=== PATIENT | female | born 1990 | race African-American/Black ===

== ENCOUNTER 2016-09-27 14:50 | Emergency (ER) | payer SELFPAY ==
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
== END 2016-09-27 16:10 | disposition home or self-care (01) ==
LOC: ER 14:50
DX: T24.032A Burn of unspecified degree of left lower leg, initial encounter (principal); X08.8XXA Exposure to other specified smoke, fire and flames, initial encounter
CPT/HCPCS: 99283

== ENCOUNTER 2016-11-09 11:59 | Emergency (ER) | payer BC, OTHER ==
--- NOTE | 2016-11-09 12:27 | ER Document Report ---
ED Medical Screen (RME) - General Chief Complaint: Pelvic Pain Stated Complaint: LEFT SIDE PAIN Time Seen by Provider: 11/09/16 12:04 Mode of Arrival: Ambulatory Information source: Patient TRAVEL OUTSIDE OF THE U.[place]. IN LAST 30 DAYS: No - HPI Patient complains to provider of: Right-sided pelvic pain Notes: 11/09/16 12:25 Patient is a 26-year-old female , presenting to the emergency room with right-sided pelvic pain that started earlier this morning, patient reports positive test confirmed at [facility], no ultrasound yet, denies any bleeding or abnormal discharge, no urinary symptoms, no fevers, LMP is 8, putting patient at 6 weeks 0 days - Related Data Allergies/Adverse Reactions: peanut Allergy (Verified 11/09/16 12:03) strawberry [[place]lin] Allergy (Verified 11/09/16 12:03) chocolate Allergy (Uncoded 11/09/16 12:03) Past Medical History Pulmonary Medical History: Reports: Hx Asthma - as a child Endocrine Medical History: Denies: Hx Diabetes Mellitus Type 1, Hx Diabetes Mellitus Type 2 Renal/ Medical History: Denies: Hx Peritoneal Dialysis - Immunizations Hx Diphtheria, Pertussis, Tetanus Vaccination: No Physical Exam - Vital signs Vitals: Temp Pulse Resp BP Pulse Ox 98.5 F 86 14 113/74 100 11/09/16 12:03 11/09/16 12:03 11/09/16 12:03 11/09/16 12:03 11/09/16 12:03 Course - Vital Signs Vital signs: Temp Pulse Resp BP Pulse Ox 98.5 F 86 14 113/74 100 11/09/16 12:03 11/09/16 12:03 11/09/16 12:03 11/09/16 12:03 11/09/16 12:03
[2016-11-09] MEDS: ACETAMINOPHEN 325 MG TABLET PO ONE (12:49)
[2016-11-09 12:59] LABS: APPEARANCE,URINE SLIGHTLY-CLOUDY; BILIRUBIN,URINE NEGATIVE (NEGATIVE); GLUCOSE, URINE NEGATIVE (NEGATIVE); KETONES,URINE NEGATIVE (NEGATIVE); LEUKOCYTE ESTERASE,URINE NEGATIVE (NEGATIVE); NITRITE,URINE NEGATIVE (NEGATIVE); PROTEIN,URINE NEGATIVE (NEGATIVE); URINE SPECIFIC GRAVITY 1.031; UROBILINOGEN,URINE NEGATIVE mg/dL (<2.0)
[2016-11-09 13:01] LABS: ABSOLUTE EOSINOPHILS # (AUTO) 0.2 10^3/uL (0.0-0.6); ABSOLUTE LYMPHOCYTES (AUTO) 2.3 10^3/uL (0.5-4.7); ABSOLUTE MONOCYTES (AUTO) 0.7 10^3/uL (0.1-1.4); ABSOLUTE NEUT (AUTO) 6.6 10^3/uL (1.7-8.2); BASOPHILS % (AUTO) 0.4 % (0-2); EOSINOPHILS % (AUTO) 2.2 % (0-6); HEMATOCRIT 31.1 % (36.0-47.0); HEMOGLOBIN 10.6 g/dL (12.0-15.5); HGB HCT DIFFERENCE 0.7; LYMPHOCYTES % (AUTO) 23.8 % (13-45); MEAN CORPUSCULAR HEMOGLOBIN 29.5 pg (27.0-33.4); MEAN CORPUSCULAR VOLUME 87 fl (80-97); MONOCYTES % (AUTO) 6.9 % (3-13); RED BLOOD COUNT 3.57 10^6/uL (3.72-5.28); RED CELL DISTRIBUTION WIDTH 14.5 % (11.5-14.0); SEGMENTED NEUTROPHILS % (AUTO) 66.7 % (42-78); WHITE BLOOD COUNT 9.9 10^3/uL (4.0-10.5)
[2016-11-09 13:07] LABS: ALANINE AMINOTRANSFERASE 49 U/L (9-52); ALBUMIN 3.9 g/dL (3.5-5.0); ALKALINE PHOSPHATASE 40 U/L (38-126); ANION GAP 8 (5-19); ASPARTATE AMINO TRANSFERASE 33 U/L (14-36); BILIRUBIN,DIRECT 0.2 mg/dL (0.0-0.4); BILIRUBIN,TOTAL 0.2 mg/dL (0.2-1.3); BLOOD UREA NITROGEN 12 mg/dL (7-20); CALCIUM 9.5 mg/dL (8.4-10.2); CARBON DIOXIDE 26 mmol/L (22-30); CHLORIDE 103 mmol/L (98-107); CREATININE RESULT 0.78 mg/dL (0.52-1.25); GLUCOSE 88 mg/dL (75-110); POTASSIUM 3.8 mmol/L (3.6-5.0); SODIUM 136.9 mmol/L (137-145); TOTAL PROTEIN 7.2 g/dL (6.3-8.2)
--- NOTE | 2016-11-09 14:27 | ER Document Report ---
ED GI/ - General Chief Complaint: Pelvic Pain Stated Complaint: LEFT SIDE PAIN Time Seen by Provider: 11/09/16 12:04 Mode of Arrival: Ambulatory Information source: Patient TRAVEL OUTSIDE OF THE [place]. IN LAST 30 DAYS: No - HPI Patient complains to provider of: Abdominal pain Onset: Yesterday Timing/Duration: Sudden, Intermittent Quality of pain: Cramping, Sharp Severity at maximum: Moderate Severity in ED: Mild Context: Location: RLQ, Right flank Vaginal bleeding (Compared to normal period): None Menstrual period history: OB ultrasound done: Yes Sexual history: Active Associated symptoms: denies: Chills, Diarrhea, Fever, Nausea Exacerbated by: Denies Relieved by: Denies Similar symptoms previously: No Recently seen / treated by doctor: No - Related Data Allergies/Adverse Reactions: peanut Allergy (Verified 11/09/16 12:03) strawberry [[place]] Allergy (Verified 11/09/16 12:03) chocolate Allergy (Uncoded 11/09/16 12:03) Past Medical History - General Information source: Patient - Social History Smoking Status: Never Smoker Chew tobacco use (# tins/day): No Frequency of alcohol use: None Drug Abuse: None Lives with: Spouse/Significant other Family History: Reviewed & Not Pertinent Patient has suicidal ideation: No Patient has homicidal ideation: No - Past Medical History Cardiac Medical History: Reports: None Pulmonary Medical History: Reports: Hx Asthma - as a child Neurological Medical History: Reports: None Endocrine Medical History: Reports: None. Denies: Hx Diabetes Mellitus Type 1, Hx Diabetes Mellitus Type 2 Renal/ Medical History: Reports: None. Denies: Hx Peritoneal Dialysis Malignancy Medical History: Reports: None GI Medical History: Reports: None Musculoskeltal Medical History: Reports None Psychiatric Medical History: Reports: None Surgical Hx: Negative - Immunizations Hx Diphtheria, Pertussis, Tetanus Vaccination: No Review of Systems - Review of Systems Constitutional: No symptoms reported EENT: No symptoms reported Cardiovascular: No symptoms reported Respiratory: No symptoms reported Gastrointestinal: See HPI Genitourinary: No symptoms reported Female Genitourinary: See HPI Musculoskeletal: No symptoms reported Skin: No symptoms reported Neurological/Psychological: No symptoms reported Physical Exam - Vital signs Vitals: Temp Pulse Resp BP Pulse Ox 98.5 F 86 14 113/74 100 11/09/16 12:03 11/09/16 12:03 11/09/16 12:03 11/09/16 12:03 11/09/16 12:03 Interpretation: Normal. No: Tachycardic, Tachypneic, Febrile - General General appearance: Appears well, Alert In distress: None - HEENT Head: Normocephalic Eyes: Normal Conjunctiva: Normal Ears: Normal Nasal: Normal Mouth/Lips: Normal Mucous membranes: Normal - Respiratory Respiratory status: No respiratory distress - Cardiovascular Rhythm: Regular - Abdominal Inspection: Normal - Extremities General upper extremity: Normal inspection General lower extremity: Normal inspection - Neurological Neuro grossly intact: Yes Cognition: Normal Orientation: AAOx4 - Psychological Associated symptoms: Normal affect, Normal mood - Skin Skin Temperature: Warm Skin Moisture: Dry Skin Color: Normal Skin Turgor: Elastic Course - Vital Signs Vital signs: Temp Pulse Resp BP Pulse Ox 98.5 F 86 14 113/74 100 11/09/16 12:03 11/09/16 12:03 11/09/16 12:03 11/09/16 12:03 11/09/16 12:03 - Laboratory Result Diagrams: 11/09/16 12:40 11/09/16 12:40 Laboratory results interpreted by me: 11/09/16 11/09/16 11/09/16 12:40 12:40 12:40 RBC 3.57 L Hgb 10.6 L Hct 31.1 L RDW 14.5 H Sodium 136.9 L Beta HCG, Quant 09913.00 H Urine Ascorbic Acid 40 H Discharge - Discharge Clinical Impression: Pelvic pain during in first trimester, antepartum Intrauterine normal Qualifiers: Trimester: first trimester Qualified Code(s): Z34.91 - Encounter for supervision of normal , unspecified, first trimester Subchorionic hemorrhage Qualifiers: Fetus number: single or unspecified fetus Trimester: first trimester Qualified Code(s): O41.8X10 - Other specified disorders of amniotic fluid and membranes, first trimester, not applicable or unspecified; O46.8X1 - Other antepartum hemorrhage, first trimester; O46.8X1 - Other antepartum hemorrhage, first trimester Condition: Stable Disposition: HOME, SELF-CARE Instructions: Pelvic Pain in ([facility]) Additional Instructions: REST, MINIMAL ACTIVITY NEXT 5-7 DAYS. YOU MAY TAKE TYLENOL FOR PAIN IF NEEDED. FOLLOW UP WITH OB. CLINIC FOR ROUTINE CARE. RETURN TO E.R. IF PROBLEMS. Referrals: MOSHE WESLEY MD [Primary Care Provider] - Follow up as needed [facility] [Outside] - Follow up as needed
--- NOTE | 2016-11-09 15:27 | RADIOLOGY REPORT (SQ) ---
EXAM DESCRIPTION: U/S OB TRANSVAG W/DOPPLER COMPLETED DATE/TIME: 11/09/2016 3:16 pm REASON FOR STUDY: right pelvic pain COMPARISON: None. TECHNIQUE: Transvaginal static and realtime grayscale images acquired of the pelvis. Additional elena cted spectral and color Doppler images recorded. All images stored on PACs. bHC,039 LIMITATIONS: None. FINDINGS: FETUS: Living intrauterine . EGA: 6 week 2 day ESTEFANI: 07/03/2017 FHR: 127 beats per minute. SUBCHORIONIC BLEED: Yes, small bleed. SIZE OF BLEED: 7.7 mm. UTERUS: No masses. No anomalies. CERVICAL LENGTH: 3.5 cm. Closed. RIGHT ADNEXA: Normal ovary with normal vascular flow. No adnexal free fluid. No adnexal masses. LEFT ADNEXA: Normal ovary with normal vascular flow. No adnexal free fluid. No adnexal masses. FREE FLUID: None. OTHER: No other significant finding. IMPRESSION: LIVING INTRAUTERINE . TINY SUBCHORIONIC HEMATOMA IS PRESENT. EGA 6 week 2 day. Trimester of : First - 0 to 13 weeks. TECHNICAL DOCUMENTATION: JOB ID: [id number] [employer]- All Rights Reserved
[2016-11-09 16:24] VITALS: BP 105/63
== END 2016-11-09 16:24 | disposition home or self-care (01) ==
LOC: ER 11:59
DX: O41.8X10 Other specified disorders of amniotic fluid and membranes, first trimester, not applicable or unspecified (principal); O26.91 Pregnancy related conditions, unspecified, first trimester; R10.2 Pelvic and perineal pain; Z91.010 Allergy to peanuts; Z91.018 Allergy to other foods
CPT/HCPCS: 36415; 76817; 80053; 81001; 84702; 85025; 87086; 93976; 99284

== ENCOUNTER 2017-01-02 09:23 | Emergency (ER) | payer BC, OTHER ==
--- NOTE | 2017-01-02 10:47 | ER Document Report ---
HPI - HPI Patient complains to provider of: Fall Onset: This morning Onset/Duration: Sudden Quality of pain: No pain Pain Level: Denies Context: Patient states she is currently 14 weeks and slipped and fell in the shower at 7:00 this morning. Patient hit her right lateral side on the bathtub wall. Patient denies any vaginal bleeding or discharge. Patient denies any urinary symptoms. Patient states that she just wants to get the baby checked. Associated Symptoms: None Exacerbated by: Denies Relieved by: Denies - ROS ROS below otherwise negative: Yes Systems Reviewed and Negative: Yes All other systems reviewed and negative - NEURO Neurology: DENIES: Headache - GASTROINTESTINAL Gastrointestinal: DENIES: Abdominal Pain, Nausea, Patient vomiting - URINARY Urinary: DENIES: Dysuria - REPRODUCTIVE LMP: 09/28/16 Reproductive: DENIES: :, Abnormal bleeding / discharge - DERM Skin Color: Normal, [place] Skin Problems: None Past Medical History - General Information source: Patient Last Menstrual Period: 14 weeks - Social History Smoking Status: Never Smoker Chew tobacco use (# tins/day): No Frequency of alcohol use: None Drug Abuse: None Occupation: [employer]. Lives with: Family Family History: Reviewed & Not Pertinent Patient has suicidal ideation: No Patient has homicidal ideation: No Pulmonary Medical History: Reports: Hx Asthma - as a child Endocrine Medical History: Denies: Hx Diabetes Mellitus Type 1, Hx Diabetes Mellitus Type 2 Renal/ Medical History: Denies: Hx Peritoneal Dialysis Surgical Hx: Negative - Immunizations Hx Diphtheria, Pertussis, Tetanus Vaccination: No Vertical Provider Document - CONSTITUTIONAL Agree With Documented VS: Yes Exam Limitations: No Limitations General Appearance: WD/WN, No Apparent Distress - INFECTION CONTROL TRAVEL OUTSIDE OF THE [place].S. IN LAST 30 DAYS: No - HEENT HEENT: Atraumatic, Normocephalic - NECK Neck: Normal Inspection - RESPIRATORY Respiratory: Breath Sounds Normal, No Respiratory Distress O2 Sat by Pulse Oximetry: 100 - CARDIOVASCULAR Cardiovascular: Regular Rate, Regular Rhythm, No Murmur - GI/ABDOMEN Gastrointestinal: Abdomen Soft, Abdomen Non-Tender, No Organomegaly. negative: Abdominal Guarding - BACK Back: Normal Inspection. negative: CVA Tenderness-Right, CVA Tenderness-Left - MUSCULOSKELETAL/EXTREMETIES Musculoskeletal/Extremeties: CANDIDO OHARA - NEURO Level of Consciousness: Awake, Alert, Appropriate Motor/Sensory: No Motor Deficit - DERM Integumentary: Warm, Dry, No Rash Course - Re-evaluation Re-evalutation: 01/02/17 Patient states that initially she had side tenderness but this resolved prior to her arrival in the ER. Patient advised that her area of initial tenderness is well above the location of where the fetus would correspond in the lower pelvic area. Patient's side without any signs of injury such as swelling, tenderness or ecchymosis. - Vital Signs Vital signs: Temp Pulse Resp BP Pulse Ox 98.6 F 75 16 101/63 100 01/02/17 09:34 01/02/17 09:34 01/02/17 09:34 01/02/17 09:34 01/02/17 09:34 Discharge - Discharge Clinical Impression: 14 weeks gestation of Fall Qualifiers: Encounter type: initial encounter Qualified Code(s): W19.XXXA - Unspecified fall, initial encounter Condition: Stable Disposition: HOME, SELF-CARE Additional Instructions: Return immediately for any new or worsening symptoms Followup with your primary care provider, call tomorrow to make a followup appointment Forms: Return to Work Referrals: JERRY GRANT MD [Primary Care Provider] - Follow up as needed
[2017-01-02 11:19] VITALS: BP 106/67
== END 2017-01-02 11:18 | disposition home or self-care (01) ==
LOC: ER 09:23
DX: O26.892 Other specified pregnancy related conditions, second trimester (principal); Z3A.14 14 weeks gestation of pregnancy; W18.2XXA Fall in (into) shower or empty bathtub, initial encounter
CPT/HCPCS: 99283; G0378

== ENCOUNTER 2017-03-02 10:54 | Emergency (ER) | payer BC, MEDICAID ==
[2017-03-02 11:25] VITALS: BP 108/57
[2017-03-02] MEDS ORDERED: NORMAL SALINE 1000 ML 1,000 ML IV PRN (13:20)
--- NOTE | 2017-03-02 13:25 | ER Document Report ---
ED General - General Mode of Arrival: Ambulatory Information source: Patient TRAVEL OUTSIDE OF THE U.S. IN LAST 30 DAYS: No - General Chief Complaint: Shortness Of Breath Stated Complaint: SHORTNESS OF BREATH Time Seen by Provider: 03/02/17 12:53 Notes: Patient is a 26 year old female currently 5 months presents to emergency department complaining of a sudden onset of shortness of breath and chest tightness onset this morning. Patient states she was at work this morning when she began to feel lightheaded and short of breath. Patient states that she proceeded to have her blood pressure checked and found it was high. Patient dneis any cough, congestion, abdominal pain, vaginal discharge, or blurry vision. (RODOLFO TORREZ) - Related Data Allergies/Adverse Reactions: No Known Drug Allergies Allergy (Verified 01/02/17 09:35) peanut Allergy (Verified 01/02/17 09:35) strawberry [[place]] Allergy (Verified 01/02/17 09:35) chocolate Allergy (Uncoded 01/02/17 09:35) Past Medical History - General Information source: Patient - Social History Smoking Status: Never Smoker Chew tobacco use (# tins/day): No Frequency of alcohol use: None Drug Abuse: None Family History: Reviewed & Not Pertinent Patient has suicidal ideation: No Patient has homicidal ideation: No Pulmonary Medical History: Reports: Hx Asthma - as a child - Immunizations Hx Diphtheria, Pertussis, Tetanus Vaccination: No Review of Systems - Review of Systems Constitutional: No symptoms reported EENT: No symptoms reported Cardiovascular: See HPI, Lightheaded Respiratory: See HPI, Short of breath Gastrointestinal: No symptoms reported Genitourinary: No symptoms reported Female Genitourinary: No symptoms reported Musculoskeletal: No symptoms reported Skin: No symptoms reported Hematologic/Lymphatic: No symptoms reported Neurological/Psychological: No symptoms reported -: Yes All other systems reviewed and negative Physical Exam - Vital signs Vitals: Temp Pulse Resp BP Pulse Ox 98.4 F 80 16 108/57 L 100 03/02/17 11:22 03/02/17 11:22 03/02/17 11:22 03/02/17 11:22 03/02/17 11:22 - Notes Notes: GENERAL: Alert, interacts well. No acute distress. HEAD: Normocephalic, atraumatic. EYES: Appear normal. Pupils equal, round, and reactive to light. ENT: Moist mucus membranes, tongue midline. NECK: Full range of motion. Supple. Trachea midline. LUNGS: Clear to auscultation bilaterally, no wheezes, rales, or rhonchi. No respiratory distress. HEART: Regular rate and rhythm. No murmurs, gallops, or rubs. ABDOMEN: Soft, non-tender. Non-distended. Normal bowel sounds. EXTREMITIES: Moves all 4 extremities spontaneously. NEUROLOGICAL: Alert and oriented x3. Normal speech. PSYCH: Normal affect, normal mood. SKIN: Warm, dry, normal turgor. No rashes or lesions noted. (RODOLFO TORREZ) Course - Re-evaluation Re-evalutation: 03/02/17 14:06 Patient was on table to get CTA of her chest when she states that she felt that her IV was burning and that her arm felt numb. They had never run any contrast per the rads tech. Upon discussion with the patient patient declined any further workup. I did explain if she were to have any blood clots this could be a life-threatening matter. She appears to have capacity and verbalized that she understands her risks. I had the nurse flush her line in front of me and she was easily able to draw blood and flush line without any pain elicited. I offered the patient Ativan to help soothe her nerves but she declined. She stated that she would contact her herbalist if her symptoms were to continue. I reiterated the risks of leaving without further testing but patient has has capacity and verbalized understanding of risks. I discussed need for follow-up if symptoms were to worsen. (ROXANNA HAGEN) - Vital Signs Vital signs: Temp Pulse Resp BP Pulse Ox 98.4 F 80 16 108/57 L 100 03/02/17 11:22 03/02/17 11:22 03/02/17 12:51 03/02/17 11:22 03/02/17 11:22 Discharge - Discharge Clinical Impression: Shortness of breath Condition: Stable Disposition: AGAINST MEDICAL ADVICE Scribe Documentation - Scribe Written by Scribe:: Luiza Goins, 03/02/2017 13:26 acting as scribe for :: Antonio
--- NOTE | 2017-03-02 15:39 | RADIOLOGY REPORT (SQ) ---
EXAM DESCRIPTION: CT CHEST WITHOUT COMPLETED DATE/TIME: 03/02/2017 3:26 pm REASON FOR STUDY: , SUDDEN ONSET SOB,CHEST TIGHTNESS COMPARISON: None. TECHNIQUE: An initial avionic technician image was acquired. At that point the patient refused to proceed with t he actual CT scan. All CT scanners at this facility use dose modulation, iterative reconstruction, and/or weight based d osing when appropriate to reduce radiation dose to as low as reasonably achievable (ALARA). [facility]: Dose Right [facility]: CareDose [facility]: Dose Right [facility]: Teradose 4D [facility]: Smart [employer] RADIATION DOSE: mGy. LIMITATIONS: No CT images acquired. FINDINGS: No images acquired other the initial avionic technician images. IMPRESSION: ONLY MIMEOGRAPH OPERATOR IMAGES WERE ACQUIRED. PATIENT REFUSED THE CT SCAN. TECHNICAL DOCUMENTATION: JOB ID: [id number] Quality ID # [id number]: Final reports with documentation of one or more dose reduction techniques (e.g., Au tomated exposure control, adjustment of the mA and/or kV according to patient size, use of iterative reconstruction technique) 2010 [employer]- All Rights Reserved
== END 2017-03-02 14:20 | disposition left against medical advice (07) ==
LOC: ER 10:54
DX: O26.892 Other specified pregnancy related conditions, second trimester (principal); R06.02 Shortness of breath; Z3A.24 24 weeks gestation of pregnancy
CPT/HCPCS: 99285; J7030; 71250

== ENCOUNTER 2017-05-25 12:28 | Outpatient (CLI) | payer MEDICAID ==
[2017-05-25 13:38] LABS: APPEARANCE,URINE SLIGHTLY-CLOUDY; BILIRUBIN,URINE NEGATIVE (NEGATIVE); COLOR,URINE YELLOW; GLUCOSE, URINE NEGATIVE (NEGATIVE); KETONES,URINE NEGATIVE (NEGATIVE); LEUKOCYTE ESTERASE,URINE SMALL (NEGATIVE); NITRITE,URINE NEGATIVE (NEGATIVE); PROTEIN,URINE NEGATIVE (NEGATIVE); URINE SPECIFIC GRAVITY 1.023
[2017-05-25 15:00] LABS: URINE AMPHETAMINES SCREEN NEGATIVE; URINE BARBITURATES SCREEN NEGATIVE; URINE BENZODIAZEPINES SCREEN NEGATIVE; URINE COCAINE SCREEN NEGATIVE; URINE MARIJUANA (THC) SCREEN NEGATIVE; URINE METHADONE SCREEN NEGATIVE; URINE PHENCYCLIDINE SCREEN NEGATIVE
== END 2017-05-25 14:13 | disposition home or self-care (01) ==
LOC: LC 12:28
PROVIDERS: ATTEND Obstetrics & Gynecology
PROC: 4A1HXCZ Monitoring of Products of Conception, Cardiac Rate, External Approach (ICD-10-PCS; principal; 2017-05-25)
DX: O47.03 False labor before 37 completed weeks of gestation, third trimester (principal); Z3A.34 34 weeks gestation of pregnancy
CPT/HCPCS: 59025; 80307; 81001

== ENCOUNTER 2018-10-15 22:07 | Emergency (ER) | payer BC, MEDICAID ==
--- NOTE | 2018-10-15 23:26 | RADIOLOGY REPORT (SQ) ---
EXAM DESCRIPTION: XR FINGERS COMPLETED DATE/TME: 10/15/2018 00:00 CLINICAL HISTORY: 28 years, Female, bone pain Findings: Bony alignment is anatomic. No fracture or dislocation. Soft tissues of the second digit. No radiopaque foreign body. IMPRESSION: No fracture.
[2018-10-15] MEDS ORDERED: LIDOCAINE 1% INJ-PF (10 MG/ML) 30 ML SDV INJ ONE (23:35)
--- NOTE | 2018-10-15 23:40 | ER Document Report ---
HPI - HPI Time Seen by Provider: 10/15/18 23:25 Pain Level: 4 Context: Patient is a 28-year-old male who presents to the emergency department with a chief complaint of finger laceration. 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 Patient states she is able to move her finger at the joint but does appreciate some numbness to the tip of the finger. Patient states her tetanus shot is not up-to-date and she has not taken any medication for her pain. - EENT EENT: DENIES: Sore Throat, Ear Pain, Eye problems - NEURO Neurology: DENIES: Headache, Weakness, Vision blurred, Dizzinesss / Vertigo - CARDIOVASCULAR Cardiovascular: DENIES: Chest pain - RESPIRATORY Respiratory: DENIES: Trouble Breathing, Coughing - GASTROINTESTINAL Gastrointestinal: DENIES: Abdominal Pain, Black / Bloody Stools - URINARY Urinary: DENIES: Dysuria, Urgency - REPRODUCTIVE Reproductive: DENIES: : - MUSCULOSKELETAL Musculoskeletal: REPORTS: Extremity pain Past Medical History - General Information source: Patient - Social History Smoking Status: Unknown if Ever Smoked Lives with: Family Family History: Reviewed & Not Pertinent Patient has suicidal ideation: No Patient has homicidal ideation: No - Past Medical History Cardiac Medical History: Reports: None Pulmonary Medical History: Reports: Hx Asthma - as a child EENT Medical History: Reports: None Neurological Medical History: Reports: None Endocrine Medical History: Reports: None Renal/ Medical History: Reports: None. Denies: Hx Peritoneal Dialysis Malignancy Medical History: Reports: None GI Medical History: Reports: None Musculoskeletal Medical History: Reports None Skin Medical History: Reports None Psychiatric Medical History: Reports: None Traumatic Medical History: Reports: None Infectious Medical History: Reports: None Surgical Hx: Negative - Immunizations Hx Diphtheria, Pertussis, Tetanus Vaccination: No Vertical Provider Document - CONSTITUTIONAL Agree With Documented VS: Yes Exam Limitations: No Limitations General Appearance: No Apparent Distress - INFECTION CONTROL TRAVEL OUTSIDE OF THE [place] IN LAST 30 DAYS: No - HEENT HEENT: Atraumatic, Normocephalic, PERRLA - NECK Neck: Normal Inspection - RESPIRATORY Respiratory: Breath Sounds Normal, No Respiratory Distress - CARDIOVASCULAR Cardiovascular: Regular Rate, Regular Rhythm - GI/ABDOMEN Gastrointestinal: Abdomen Soft, Abdomen Non-Tender - MUSCULOSKELETAL/EXTREMETIES Notes: Patient has a U shaped jagged laceration noted to the volar aspect of the right index finger at the DIP joint. No active bleeding. Patient has less than 2- second cap refill. Patient does have decreased sensation to the tip of the finger distal to the injury. Patient does have good flexion extension of the right index finger. Patient does report numbness to the volar aspect of the tip of the right index. No discoloration. - NEURO Level of Consciousness: Awake, Alert, Appropriate - DERM Integumentary: Warm, Dry Course - Re-evaluation Re-evalutation: 10/15/18 23:39 We will update patient's Tdap. X-ray was negative for any acute fracture. Patient will require an anesthetic, wound irrigation and evaluation once numb. - Vital Signs Vital signs: Temp Pulse Resp BP Pulse Ox 98 F 77 16 110/70 99 10/15/18 22:26 10/15/18 22:26 10/15/18 22:26 10/15/18 22:26 10/15/18 22:26 - Diagnostic Test Radiology reviewed: Reports reviewed Radiology results interpreted by me: 10/15/18 23:39 Finger X-Ray 10/15/18 00:00 IMPRESSION: No fracture. Procedures - Laceration/Wound Repair Right Volar Finger 2nd digit Wound length (cm): 3 Wound's Depth, Shape: Irregular, Flap Laceration pre-procedure: Sterile PPE donned, Sterile drapes applied, Shur-Clens applied Anesthetic type: 1% Lidocaine Volume Anesthetic (mLs): 5 Wound Repaired With: Sutures Suture Size/Type: 4:0, Ethilon Number of Sutures: 6 Post-procedure wound care: Sterile dressing applied, Splint applied Complications: No Notes: 10/16/18 02:11 Patient did have some numbness noted to the tip of the right index finger distal to the injury. Patient did have a less than 2-second cap refill and good flexion extension. I did inform the patient that this could be a nerve injury or the blood and swelling that is pushing on the nerve causing the numbness. I will place the patient in a finger splint and have her follow-up with orthopedics. Patient reports she does have health insurance and will follow up with them tomorrow. Patient instructed to keep the splint on as the laceration repair was over the DIP joint. Will give patient prophylactic antibiotics. Discharge - Discharge Clinical Impression: Laceration Finger injury Qualifiers: Encounter type: initial encounter Laterality: right Qualified Code(s): S69.91XA - Unspecified injury of right wrist, hand and finger(s), initial encounter Condition: Stable Disposition: HOME, SELF-CARE Instructions: Antibiotic Ointment Protection ([facility]), Laceration Care ([facility]), Prophylactic Antibiotic ([facility]), Tetanus Immunization Given ([facility]) Additional Instructions: Today you are seen in the emergency department for finger laceration. We did obtain an x-ray which was negative for any acute bony abnormality such as a dislocation or a fracture. 6 sutures were placed in the finger over the distal joint. These do need to stay in place for about 10 to 14 days. They typically stay a little bit longer due to the laceration being over the joint area. Please follow-up with Dr. Pruitt as he has a hand surgeon. Due to the numbness that you are having at the tip of the finger I cannot rule out a nerve injury. Some people do get numbness when there is swelling to the injury and is placing pressure over the nerve or it can be from an actual nerve injury that was cut during a can opening. You are being placed on prophylactic antibiotics. You will be placed on Keflex to take four times per day for the next 5 days. Please monitor for signs of infection to include redness, drainage, fever. Prescriptions: Cephalexin Monohydrate [Keflex 500 mg Capsule] 500 mg PO Q6H 5 Days #20 capsule Forms: Parent Work Note Referrals: PARKER PRUITT DO [ACTIVE STAFF] - Follow up as needed
[2018-10-15] MEDS ORDERED: CEPHALEXIN 500 MG CAPSULE PO ONE (23:41)
[2018-10-16 01:38] VITALS: BP 112/68
== END 2018-10-16 01:39 | disposition home or self-care (01) ==
LOC: ER 22:07
DX: S61.210A Laceration without foreign body of right index finger without damage to nail, initial encounter (principal); W26.8XXA Contact with other sharp object(s), not elsewhere classified, initial encounter; Y92.009 Unspecified place in unspecified non-institutional (private) residence as the place of occurrence of the external cause; Z23 Encounter for immunization
CPT/HCPCS: 73140; 12002; J3490; 99283

== ENCOUNTER 2018-10-26 15:38 | Emergency (ER) | payer BC ==
[2018-10-26 15:54] VITALS: BP 105/69
--- NOTE | 2018-10-26 16:09 | ER Document Report ---
HPI - HPI Time Seen by Provider: 10/26/18 15:52 Pain Level: Denies Context: Patient is a 28-year-old female who presents emergency department for suture removal. She was seen on October 15 for laceration and had it repaired. She was cooking dinner and that is what caused her laceration. She denies any fever, body aches, chills or any other symptoms. - CONSTITUTIONAL Constitutional: DENIES: Fever, Chills - NEURO Neurology: DENIES: Headache - CARDIOVASCULAR Cardiovascular: DENIES: Chest pain - RESPIRATORY Respiratory: DENIES: Trouble Breathing, Coughing - REPRODUCTIVE Reproductive: DENIES: : - MUSCULOSKELETAL Musculoskeletal: DENIES: Extremity pain - DERM Skin Color: Normal Skin Problems: Laceration - With [address] Past Medical History - General Information source: Patient - Social History Smoking Status: Never Smoker Family History: Reviewed & Not Pertinent Patient has suicidal ideation: No Patient has homicidal ideation: No Pulmonary Medical History: Reports: Hx Asthma - as a child Renal/ Medical History: Denies: Hx Peritoneal Dialysis - Immunizations Hx Diphtheria, Pertussis, Tetanus Vaccination: No Vertical Provider Document - CONSTITUTIONAL Agree With Documented VS: Yes Exam Limitations: No Limitations General Appearance: No Apparent Distress - INFECTION CONTROL TRAVEL OUTSIDE OF THE [place] IN LAST 30 DAYS: No - HEENT HEENT: Atraumatic, Normocephalic, PERRLA - NECK Neck: Normal Inspection - CARDIOVASCULAR Cardiovascular: Regular Rate - MUSCULOSKELETAL/EXTREMETIES Musculoskeletal/Extremeties: FROM, Non-Tender - NEURO Level of Consciousness: Awake, Alert, Appropriate Motor/Sensory: No Motor Deficit, No Sensory Deficit - DERM Integumentary: Warm, Dry, Laceration - Healed with [address] to right index finger. Course - Re-evaluation Re-evalutation: 10/26/18 16:08 6 sutures were removed from the patient's right index finger by [facility]. Follow-up precautions were given. Verbal discharge instructions were given to the patient. They verbalized understanding. They are stable for discharge. 32 - Vital Signs Vital signs: Temp Pulse Resp BP Pulse Ox 98.2 F 89 16 105/69 100 10/26/18 15:51 10/26/18 15:51 10/26/18 15:51 10/26/18 15:51 10/26/18 15:51 Discharge - Discharge Clinical Impression: Visit for suture removal Condition: Stable Disposition: HOME, SELF-CARE Additional Instructions: You were seen today in the emergency department for suture removal. Your sutures were removed. Referrals: JERRY GRANT MD [Primary Care Provider] - Follow up as needed
== END 2018-10-26 16:33 | disposition home or self-care (01) ==
LOC: ER 15:38
DX: S61.210D Laceration without foreign body of right index finger without damage to nail, subsequent encounter (principal); X58.XXXD Exposure to other specified factors, subsequent encounter; J45.909 Unspecified asthma, uncomplicated